=== PATIENT | male | born 1965 | race African-American/Black ===

== ENCOUNTER 2018-09-17 10:42 | Emergency (ER) | payer OTHER ==
[~2018-09-17] VITALS: Ht 175.3 cm; Wt 74.8 kg
[~2018-09-17 10:42] MED LIST: BACLOFEN20 MG PO; COL250 PO; COLACE100 MG PO; HEP5I SC; LIO10 PO; MIRUD PO; NOR10T PO; VALIUM5 MG PO
[2018-09-17 11:03] VITALS: Ht 175.3 cm; Wt 74.8 kg
[2018-09-17 12:59] LABS: BASOPHIL % 0.4 % (0-2); PLATELET COUNT 222 x10^3mcL (130-400); RED CELL DISTRIBUTION WIDTH 13.8 % (11.5-14.5)
[2018-09-17 13:08] LABS: CALCIUM 9.1 mg/dL (8.5-10.1); CARBON DIOXIDE 25.9 mmol/L (21-32); CHLORIDE SERUM 99 mmol/L (98-107); CREATININE SERUM 0.9 mg/dL (0.7-1.3); GFR1 > 60 mL/min; GLUCOSE SERUM 127 mg/dL (74-106); POTASSIUM SERUM 3.5 mmol/L (3.5-5.1); SODIUM SERUM 135 mmol/L (136-145)
[2018-09-17 13:13] LABS: ALKALINE PHOSPHATASE 86 U/L (46-116); ALT/SGPT 26 U/L (16-63); AST/SGOT 15 U/L (15-37); BILIRUBIN TOTAL 0.9 mg/dL (0.20-1.00); TOTAL PROTEIN, SERUM 7.8 g/dL (6.4-8.2)
[2018-09-17 13:14] LABS: ALBUMIN 2.9 g/dL (3.4-5.0)
[2018-09-17 13:30] LABS: microscopic required? YES; urine erythrocyte 3+ (NEGATIVE)
[2018-09-17 18:23] VITALS: BP 102/68
== END 2018-09-17 18:23 | disposition home or self-care (01) ==
LOC: ED 10:42
PROVIDERS: Emergency Medicine
DX: N39.0 Urinary tract infection, site not specified (principal); A41.9 Sepsis, unspecified organism; G82.50 Quadriplegia, unspecified; Z88.1 Allergy status to other antibiotic agents
CPT/HCPCS: J1956; J7030